=== PATIENT | female | born 1950 | race Hispanic/Latino ===

== ENCOUNTER 2017-07-25 01:36 | Emergency (ER) | payer MEDICARE ==
[~2017-07-25] VITALS: Ht 152.4 cm; Wt 63.5 kg
[~2017-07-25 01:36] MED LIST: ASPIR 8181 MG PO; ATENOLOL50 MG PO; CALCIUM 500+D1 EACH PO; CETIRIZINE HCL10 M1 PO; HYDROCHLOROTHIA25 MG PO; LEVOTHYROXINE50 MCG PO; LISINOPRIL2.5 MG PO; METFORMIN HCL500 M2 PO; OMEPRAZOLE40 MG PO; ONDANSETRO4 MG/UDTAB SL; PRAVASTATIN SOD10 MG PO
== END 2017-07-25 02:03 | disposition home or self-care (01) ==
LOC: ER 01:36
DX: S29.011A Strain of muscle and tendon of front wall of thorax, initial encounter (principal); S46.912A Strain of unspecified muscle, fascia and tendon at shoulder and upper arm level, left arm, initial encounter; X50.0XXA Overexertion from strenuous movement or load, initial encounter; Y93.I9 Activity, other involving external motion
CPT/HCPCS: 99282